=== PATIENT | female | born 1995 | race Caucasian/White ===

== ENCOUNTER 2017-06-17 00:03 | Emergency (ER) | payer OTHER ==
[~2017-06-17] VITALS: Ht 172.7 cm; Wt 79.0 kg
--- NOTE | 2017-06-17 00:13 | EMERGENCY ROOM VISIT NOTE ---
History Report prepared by Saud[employer]pop: Teresa Roberson Under the Supervision of: Dr. Umer Wren M.D. First contact with patient: 00:05 Chief Complaint: ALCOHOL OVERDOSE Stated Complaint: ALCOHOL OVERDOSE History of Present Illness The patient is a 22 year old female who presents to the Emergency Room for being heavily intoxicated by EMS. Per EMS, the patient was picked up at [facility] by the police and transported to the ED by EMS. The patient has no trauma and no injury. The patient denies having abdominal pain or vomiting. Source of History: EMS Onset: a couple of hours ago Position: other (global) Symptom Intensity: minimal Quality: other (intoxicated) Associated Symptoms: No vomiting, No abdominal pain Review of Systems Limited ros secondary to the patient being heavily intoxicated. Past Medical & Surgical Medical Problems: (1) Chlamydia (2) No Known Active Medical Problems Social History Smoking Status: Never Smoker Alcohol Use: occasionally Drug Use: none Housing Status: lives with roommate Occupation Status: [employer] student Current/Historical Medications No Active Prescriptions or Reported Meds Allergies Coded Allergies: No Known Allergies (Unverified , 09/08/15) Physical Exam Vital Signs Date Time Temp Pulse Resp B/P (MAP) Pulse Ox O2 Delivery O2 Flow Rate FiO2 06/17/17 06:06 72 13 99 06/17/17 06:01 105/59 06/17/17 05:51 67 17 97 06/17/17 05:36 67 13 97 06/17/17 05:31 67 14 90/52 97 06/17/17 05:16 66 15 97 06/17/17 05:01 66 13 84/42 97 06/17/17 04:46 63 18 97 06/17/17 04:41 63 12 98 06/17/17 04:31 89/55 06/17/17 04:26 67 19 97 06/17/17 04:11 59 12 98 06/17/17 04:08 65 06/17/17 04:01 93/58 06/17/17 03:56 64 17 96 06/17/17 03:51 63 14 96 06/17/17 03:36 62 16 97 06/17/17 03:31 81/49 06/17/17 03:21 61 13 97 06/17/17 03:06 61 15 98 06/17/17 03:01 101/56 10/27/17 02:56 64 13 97 06/17/17 02:41 61 12 98 06/17/17 02:31 83/51 06/17/17 02:26 60 12 98 06/17/17 02:11 59 13 100 06/17/17 02:06 58 12 100 06/17/17 02:01 100/66 06/17/17 01:51 58 12 100 06/17/17 01:36 57 12 100 06/17/17 01:31 84/55 06/17/17 01:21 56 12 100 06/17/17 01:06 53 12 100 06/17/17 01:01 91/60 06/17/17 00:48 48 12 100 06/17/17 00:33 45 13 100 06/17/17 00:31 95/66 06/17/17 00:18 52 13 99 Room Air 06/17/17 00:16 50 06/17/17 00:15 36.7 53 16 119/80 98 Room Air 06/17/17 00:13 119/80 Physical Exam GENERAL: Patient is heavily intoxicated. Smells of alcohol. Well appearing and in no acute distress. HEAD: No evidence of Trauma. AT/NC EYES: Injected conjunctiva. Normal EOM. Pupils equal/reactive. ENT: Mucous membranes moist, no nasal congestion, . NECK: No step-offs, no adenopathy, no meningismus, trachea is midline. LUNGS: No dyspnea. Clear to auscultation and equal bilaterally. No wheeze, no rhonchi. HEART: Regular rate and rhythm. No murmurs, rubs, gallops appreciated. ABDOMEN: Soft, nontender, bowel sounds positive, no masses appreciated, no peritonitis. BACK: No midline tenderness, no CVA tenderness EXTREMITIES: Normal motion all extremities, no cyanosis, no edema. NEUROLOGIC: Intoxicated. Not alert, oriented, heavily intoxicated with slurred answers. No acute motor or sensory deficits, no focal weakness, cranial nerves grossly intact. SKIN: No rash, no jaundice, no diaphoresis. Medical Decision & Procedures Laboratory Results 06/17/17 00:15 Test 06/17/17 00:15 Anion Gap 10.0 mmol/L (3-11) Est Creatinine Clear Calc Drug Dose 110.4 ml/min Estimated GFR () 107.4 Estimated GFR (Non- 92.6 BUN/Creatinine Ratio 20.9 (10-20) Calcium Level 8.3 mg/dl (8.5-10.1) Human Chorionic Gonadotropin, Qual NEG (NEG) Ethyl Alcohol mg/dL 332.4 mg/dl (0-3) Laboratory results as reviewed by me. ED Course 0005: The patient was evaluated in room A11B. A complete history and physical exam was performed. 0029: I reassessed the patient and she is resting. 0053: I reassess the patient and she is still resting. Her vital signs are normal. 0603: I reassessed the patient. She is awake and oriented and answering all questions. She denies all complaints. I discussed how dangerous this was and advised her to refrain from all further alcohol. The patient is ready to be discharged. Medical Decision Differential: Alcohol Intoxication, Drug Intoxication, Electrolyte Abnormality, Trauma, Intracranial Event, Toxicological, Excited Delirium, Serotonin Syndrome , amongst other pathologies entertained. 22 yr old intoxicated female brought in by EMS after being found by police intoxicated outside of [facility]. Patient with no evidence nor history for trauma. Protecting airway and breathing comfortably throughout ED stay. Did vomit at one point but no respiratory issues and O2 stayed stable. EtOH positive and other labs unremarkable other than mild hypoK. Monitored and discharged when awake, alert, oriented and denies any complaints. We discussed the dangers of her alcohol abuse and risks associated with it. I advised against any further alcohol intake. I advised healthy diet given mild low K. Medication Reconcilliation Current Medication List: was personally reviewed by me Blood Pressure Screening Patient's blood pressure: Normal blood pressure Impression Primary Impression: Alcohol abuse Additional Impressions: Alcohol intoxication Hypokalemia Scribe Attestation The scribe's documentation has been prepared under my direction and personally reviewed by me in its entirety. I confirm that the note above accurately reflects all work, treatment, procedures, and medical decision making performed by me. Departure Information Dispostion Home / Self-Care Prescriptions No Active Prescriptions or Reported Meds Referrals [facility] (PCP) Patient Instructions My [facility] Additional Instructions You were evaluated in emergency department for intoxication. This is a sign of Alcohol Abuse and should not be taken lightly. You had a blood alcohol level that was significantly elevated. Your Potassium was mildly low. Make sure you eat a well balanced diet, especially over the next few days. Over the next 24 hours keep well hydrated and eat light meals. Don't drink any more alcohol. This is important. Please discuss this visit with your Primary Care Provider, [facility] and/or your loved ones. Unless an exceptional circumstance, the Hospital DOES NOT contact anyone DURING your visit, nor is your Protected Medical Information released to anyone without your approval/request. This means we do not contact your Parents, the Police, etc. However, you will likely receive a bill from the Hospital and/or your Insurance company, which will usually be sent to the Primary Policy Romero (often one's Parents). Furthermore, as a student, your visit report will likely be sent to [facility] as your primary care provider, unless other Provider listed. If your incident was on campus, or if the Police were involved, they will often contact the University to make them aware of what happened. Often this will result in you being required to take Alcohol Education classes (ie BASICS class) . Please see information given to you at discharge regarding contact for this. If the Police were involved you will likely be cited for public intoxication. Please contact either [facility] Police or the [place] Police for further information. Call 911 or return to Emergency Department if you develop: Passing out, difficulty breathing, many episodes of vomiting, blood in vomit or stool, abdominal pain, fevers, or other severe symptoms. We are always here to help if you feel you need further evaluation or treatment. Problem Qualifiers
[2017-06-17 00:15] VITALS: TEMP 36.7; Ht 172.7 cm; Wt 79.0 kg
[2017-06-17 00:56] LABS: BUN/CREATININE RATIO 20.9 (10-20); CALCIUM 8.3 mg/dl (8.5-10.1); CREATININE 0.89 mg/dl (0.60-1.20); POTASSIUM 3.2 mmol/L (3.5-5.1)
[2017-06-17 01:15] LABS: PREG INTERNAL NEGATIVE QC NEG CLEAR BACKGROUND; PREG INTERNAL POSITIVE QC POS CONTROL LINE
[2017-06-17 06:01] VITALS: BP 105/59
[2017-06-17 06:06] VITALS: PULSE 72; O2SAT 99
== END 2017-06-17 06:21 | disposition home or self-care (01) ==
LOC: EDBD 00:03 → C.EDA 00:06
DX: F10.129 Alcohol abuse with intoxication, unspecified (principal); E87.6 Hypokalemia